=== PATIENT | male | born 1990 | race Caucasian/White ===

== ENCOUNTER 2018-04-02 17:12 | Emergency (ER) | payer BC ==
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
[2018-04-02] MEDS: Diphtheria,Pertussis(Acell),Tetanus Vaccine 0.5 ML Syringe IM ONE (17:54)
[2018-04-02] MEDS: Lidocaine/EPINEPHrine/Tetracaine Soln 1 ML TOP ONE (17:56)
[2018-04-02] MEDS: Lidocaine 1% 20 ML MDV INJECT ONE (18:10)
[2018-04-02] MEDS ORDERED: Bacitracin Oint 1 GM U/D Packet TOP ONE (18:35)
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
== END 2018-04-02 19:00 | disposition home or self-care (01) ==
LOC: MW.ED 17:12
DX: S81.011A Laceration without foreign body, right knee, initial encounter (principal); V29.9XXA Motorcycle rider (driver) (passenger) injured in unspecified traffic accident, initial encounter; F17.210 Nicotine dependence, cigarettes, uncomplicated; Z23 Encounter for immunization; M25.551 Pain in right hip
CPT/HCPCS: 73502-26-RT; 73502-RT; 73562-26-RT; 73562-RT; 90471; 90715; 99285-25

== ENCOUNTER 2021-04-02 22:27 | Emergency (ER) | payer BC, OTHER ==
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
[2021-04-02] MEDS ORDERED: Iopamidol 755 MG/ML 500 ML Multipack Bottle IVPUSH STA (23:08)
[2021-04-03 00:33] LABS: BLOOD UREA NITROGEN,BUN 9 mg/dL (7.0-18.0); CARBON DIOXIDE,CO2 24.2 mmol/L (21.0-32.0); CHLORIDE,CL 103 mmol/L (98-107); GLUCOSE RANDOM 123 mg/dL (74-106); POTASSIUM,K 3.1 mmol/L (3.5-5.1); SODIUM,NA 142 mmol/L (136-148)
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
== END 2021-04-03 01:35 | disposition home or self-care (01) ==
LOC: MW.ED 22:27
DX: S00.81XA Abrasion of other part of head, initial encounter (principal); V28.4XXA Motorcycle driver injured in noncollision transport accident in traffic accident, initial encounter
CPT/HCPCS: 70450; 70486; 71260; 72125; 74177; 80048; 80076; 80307; 85025; 85610; 85730; 99285; Q9967; 72128-26; 72131-26